=== PATIENT | female | born 1965 | race Caucasian/White ===

== ENCOUNTER 2023-04-12 12:08 | Outpatient (CLI) | payer MEDICARE | END 2023-04-12 12:09 | disposition home or self-care (01) | LOC: CSHMRI 12:08 | PROVIDERS: ATTEND Orthopaedic Surgery | DX: M87.9 Osteonecrosis, unspecified (principal); S73.192A Other sprain of left hip, initial encounter; S76.012A Strain of muscle, fascia and tendon of left hip, initial encounter ==

== ENCOUNTER 2023-05-14 12:57 | Outpatient (CLI) | payer MEDICARE | END 2023-05-14 12:58 | disposition home or self-care (01) | LOC: CSHMRI 12:57 | PROVIDERS: ATTEND Orthopaedic Surgery | DX: M75.102 Unspecified rotator cuff tear or rupture of left shoulder, not specified as traumatic (principal); M75.122 Complete rotator cuff tear or rupture of left shoulder, not specified as traumatic; M75.82 Other shoulder lesions, left shoulder; M19.012 Primary osteoarthritis, left shoulder ==

== ENCOUNTER 2023-06-08 07:25 | Outpatient (CLI) | payer MEDICARE | END 2023-06-08 07:26 | disposition home or self-care (01) | LOC: CSHMRI 07:25 | PROVIDERS: ATTEND Orthopaedic Surgery | DX: M75.101 Unspecified rotator cuff tear or rupture of right shoulder, not specified as traumatic (principal); M24.111 Other articular cartilage disorders, right shoulder; M25.411 Effusion, right shoulder; M24.011 Loose body in right shoulder; M19.011 Primary osteoarthritis, right shoulder ==